=== PATIENT | female | born 1945 | race Caucasian/White ===

== ENCOUNTER 2016-10-25 21:04 | Emergency (ER) | payer MEDICARE, MEDICAID ==
[~2016-10-25] VITALS: Ht 167.6 cm; Wt 89.4 kg
[~2016-10-25 21:04] MED LIST: ASPI-587 PO; CALCIUM PO; CITA10SO PO; CITA10TA PO; Docusate Sodium PO; EST30C PV; FISH400C2 PO; FLAX100032 PO; FLUT16SP22; GLYB5TAB6 PO; HYDR-3720 PO; HYDR1TAB8 OP; Ibuprofen PO; LISI1TAB6 PO; LORA-877 PO; LOVA40TA2 PO; MAGN400C PO; MTF500T PO; MULT-974 PO; Magnesium PO; OMG1KC PO; UBID50TA3 PO; VITA1CAP21 PO; [UNRECOGNIZED DRUG - OTHER] NSEACH
[2016-10-25] MEDS ORDERED: ATOR20TA66 PO (22:22)
[2016-10-25] MEDS ORDERED: LORA10TA7 PO (22:22)
[2016-10-25] MEDS ORDERED: GLIP5TAB13 PO (22:22)
[2016-10-25] MEDS ORDERED: METF1000 PO (22:22)
[2016-10-25] MEDS ORDERED: CITA20TA7 PO (22:22)
[2016-10-25] MEDS ORDERED: MECL-106 PO (22:58)
--- NOTE | 2016-10-25 22:58 | ED Neurological Problem ---
General Chief Complaint: Dizziness/Syncope Stated Complaint: DIZZINESS/UNABLE TO EAT/LEG CRAMPS Nursing Triage Note: Pt c/o dizziness starting at 1500 yesterday. Pt reports she has a hard time standing due to dizziness. Nursing Sepsis Screen: No Definite Risk Source: patient Exam Limitations: no limitations History of Present Illness Time seen by provider: 21:15 Initial Comments This 71-year-old woman presents to the emergency room with complaints of dizziness described as a spinning or vertigo sensation since yesterday afternoon. She denies any other neurologic symptoms. She denies nausea and vomiting. She has loss of appetite. Movement and getting up seems to make the dizziness worse. Patient also reports starting a new antidepressant medication about 5 days ago. Patient also complains of lower extremity cramping. Allergies and Home Medications Allergies Coded Allergies: Penicillins (Verified Allergy, Unknown, 06/02/14) Sulfa (Sulfonamide Antibiotics) (Verified Allergy, Unknown, 06/02/14) latex (Unverified Allergy, Unknown, ITCHING, 06/02/14) Home Medications Aspirin 81 Mg Tablet.dr, 81 MG PO DAILY, (Reported) Atorvastatin Calcium 20 Mg Tablet, 20 MG PO DAILY, (Reported) Citalopram Hydrobromide 20 Mg Tablet, 20 MG PO DAILY, (Reported) Glipizide 5 Mg Tablet, 5 MG PO BID, (Reported) Hctz/Lisinopril 1 Each Tablet, 1 EACH PO DAILY, (Reported) Loratadine 10 Mg Tablet, 10 MG PO DAILY, (Reported) Meclizine HCl 25 Mg Tablet, 25 MG PO TID PRN for DIZZINESS, #20 Prescribed by: TRICIA DANIELS on 10/25/16 1396 Metformin HCl 1,000 Mg Tablet, 1,000 MG PO BID WITH MEALS, (Reported) Constitutional: no symptoms reported Eyes: No Symptoms Reported Ears, Nose, Mouth, Throat: no symptoms reported Respiratory: no symptoms reported Cardiovascular: no symptoms reported Gastrointestinal: see HPI Genitourinary: no symptoms reported : No Musculoskeletal: no symptoms reported Skin: no symptoms reported Psychiatric/Neurological: See HPI Endocrine: No Symptoms Reported Past Qxkiarv-Zclxyb-Xqsyxq Hx Patient Social History Alcohol Use: Denies Use Recreational Drug Use: No Smoking Status: Never a Smoker Recent Foreign Travel: No Contact w/Someone Who Travel: No Recent Infectious Disease Expo: No Recent Hopitalizations: No Immunizations Up To Date Tetanus Booster (TDap): More than 5yrs Date of Pneumonia Vaccine: Aug 22, 2009 Date of Influenza Vaccine: May 22, 2013 Seasonal Allergies Seasonal Allergies: Yes Surgeries HX Surgeries: Yes (SINUS sx x2, CATARACTS) Surgeries: Bladder Surgery, Hysterectomy Respiratory Hx Respiratory Disorders: No Cardiovascular Hx Cardiac Disorders: Yes ("hole in heart") Cardiac Disorders: Hypertension Neurological Hx Neurological Disorders: No Reproductive System Hx Reproductive Disorders: Yes 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 Genitourinary Hx Genitourinary Disorders: No Gastrointestinal Hx Gastrointestinal Disorders: No Musculoskeletal Hx Musculoskeletal Disorders: Yes (arthritis, right patella fx,) Musculoskeletal Disorders: Arthritis, Fractures Endocrine Hx Endocrine Disorders: Yes Endocrine Disorders: Diabetes, Non-Insulin dep HEENT HX ENT Disorders: No Cancer Hx Cancer: No Psychosocial Hx Psychiatric Problems: Yes Behavioral Health Disorders: Depression Integumentary HX Skin/Integumentary Disorder: No Blood Transfusions Hx Blood Disorders: No Family Medical History Family Medial History: Alzheimer's disease 19 MOTHER Arthritis 19 FATHER 19 MOTHER G8 BROTHER G8 SISTER Cardiovascular disease 19 FATHER Completed stroke 19 FATHER Diabetes mellitus 19 FATHER G8 BROTHER G8 SISTER Myocardial infarction 19 FATHER Prostate cancer 19 FATHER No Family History of: AIDS Abdominal aortic aneurysm Alcoholism Colon cancer Dementia Drug abuse Kidney disease Psychosocial problem Respiratory disorder Seizure disorder Severe allergy Thyroid disease Tuberculosis Physical Exam Vital Signs Vital Sign - Last 12Hours 10/25/16 22:14 Temp 97.3 Pulse 82 Resp 18 B/P (MAP) 144/84 Pulse Ox 97 O2 Delivery Room Air Capillary Refill : Less Than 3 Seconds General Appearance: WD/WN, mild distress HEENT: PERRL/EOMI, normal ENT inspection, pharynx normal Neck: supple, normal inspection, No carotid bruit Respiratory: lungs clear, normal breath sounds, no respiratory distress, no accessory muscle use Cardiovascular: regular rate, rhythm, no edema, no murmur Gastrointestinal: normal bowel sounds, non tender, soft Extremities: normal inspection, no pedal edema Neurologic/Psychiatric: a r collections rep II-XII nml as tested, no motor/sensory deficits, alert, normal mood/affect, oriented x 3, other (Positive Randolph-Hallpike on the left) Crainal Nerves: normal hearing, normal speech, PERRL Coordination/Gait: normal finger to nose, normal gait Motor/Sensory: no motor deficit, no sensory deficit Skin: normal color, warm/dry Progress/Results/Core Measures Results/Orders My Orders Vital Signs/I&O Vital Sign - Last 12Hours 10/25/16 10/25/16 22:14 23:05 Temp 97.3 97.3 Pulse 82 82 Resp 18 18 B/P (MAP) 144/84 Pulse Ox 97 97 O2 Delivery Room Air Blood Pressure Mean: 104 Progress Note : Progress Note Patient has a dizziness without any other neurologic complaints or exam findings. Judith-Hallpike was positive to the left. Francisco maneuver was performed which completely relieved her symptoms. Patient was offered lab work to evaluate her lower extremity cramping. She declined stating she would have this done by her primary care provider at the appointment tomorrow. Departure Impression Impression: Primary Impression: Benign paroxysmal positional vertigo of left ear Additional Impression: Leg cramping Qualified Codes: R25.2 - Cramp and spasm Disposition: 01 HOME, SELF-CARE Condition: Improved Departure-Patient Inst. Decision time for Depature: 22:50 Referrals: [facility] (PCP) Primary Care Physician JC BAILEY (Family) Primary Care Physician Patient Instructions: Vertigo (a Type of Dizziness) (DC) Add. Discharge Instructions: Rink plenty of clear liquids. Eat something with potassium in it such as a banana or orange juice tonight. Discuss your leg cramps with your primary care provider tomorrow. If dizziness returns, you may use meclizine to help manage symptoms. Try the Francisco maneuver again if needed. Return to the ER if symptoms worsen. All discharge instructions reviewed with patient and/or family. Voiced understanding. Scripts Meclizine HCl (Meclizine HCl) 25 Mg Tablet 25 MG PO TID Y for DIZZINESS, #20 TAB Prov: TRICIA ECKERT MD 10/25/16 Copy Copies To 1: KHUSHBU ZHU JOSHUA T MD Oct 25, 2016 22:58
[2016-10-25 23:05] VITALS: BP 131/78
--- OUTSIDE RECORDS SUMMARY | 2016-11-26 00:30 | XMS REPORT ---
Author Author WHITNEY BENAVIDES Organization [employer] Address Unknown Phone Unavailable Care Team Providers Care Commercial Development Manager Name Role Phone WHITNEY BENAVIDES CP Unavailable Allergies No Known Allergies Problems Problem Type Condition Code Onset Dates Condition Status Problem Type 2 diabetes mellitus with diabetic polyneuropathy E11.42 Active Problem Essential (primary) hypertension I10 Active Problem Depression F32.9 Active Problem Insomnia G47.00 Active Problem Postnasal drip R09.82 Active Problem Generalized anxiety disorder F41.1 Active Problem Hyperlipemia E78.5 Active Problem Diabetes E11.9 Active Problem CAD (coronary artery disease) I25.10 Active Problem Hypertension I10 Active Problem 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
--- OUTSIDE RECORDS SUMMARY | 2016-11-26 00:30 | XMS REPORT ---
Author JC Strauss [facility] eClinicalWorks Address Unknown Phone Unavailable Care Team Providers Care Mandrel Puller Name Role Phone JC BAILEY Unavailable Allergies No Known Allergies Problems Problem Type Condition Code Onset Dates Condition Status Problem Atherosclerotic heart disease of [place] coronary artery without angina pectoris I25.10 Active Problem Hyperlipemia E78.5 Active Problem Primary generalized (osteo)arthritis M15.0 Active Problem Dyslipidemia associated with type 2 diabetes mellitus E11.69 Active Problem Acute cystitis without hematuria N30.00 Active Problem Generalized anxiety disorder F41.1 Active Problem Type 2 diabetes mellitus without complications E11.9 Active Problem Postnasal drip R09.82 Active Problem Hypertension I10 Active Problem Insomnia G47.00 Active Problem DM neuro manif type II E11.49 Active Medications Medication Code System Code Instructions Start Date End Date Status Dosage Ciprofloxacin HCl NDC [address]-90 500 MG Orally Twice a day Jun 07, 2016 Jun 14, 2016 1 tablet Glucometer NDC 0 1 glucometer Jun 08, 2016 [employer] True Metrix Flexeril NDC 0 10 mg Orally Once a day at night Jun 07, 2016 Jul 07, 2016 1 tablet Results No Known Results Summary Purpose eClinicalWorks Submission
--- OUTSIDE RECORDS SUMMARY | 2016-11-26 00:30 | XMS REPORT ---
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
--- OUTSIDE RECORDS SUMMARY | 2016-11-26 00:30 | XMS REPORT ---
Author JC Strauss [facility] eClinicalWorks Address Unknown Phone Unavailable Care Team Providers Care Aluminum Sheet Cutter Name Role Phone JC BAILEY CP Unavailable Allergies, Adverse Reactions, Alerts Substance Reaction Event Type Sulfamethoxazole-Trimethoprim Info Not Available Drug Allergy Penicillin V Potassium Info Not Available Drug Allergy latex Info Not Available Non Drug Allergy tape Info Not Available Non Drug Allergy Problems Problem Type Condition Code Onset Dates Condition Status Problem Atherosclerotic heart disease of [place] coronary artery without angina pectoris I25.10 Active Problem Hyperlipemia E78.5 Active Problem Primary generalized (osteo)arthritis M15.0 Active Problem Acute cystitis without hematuria N30.00 Active Problem Generalized anxiety disorder F41.1 Active Problem Type 2 diabetes mellitus without complications E11.9 Active Problem Postnasal drip R09.82 Active Problem Hypertension I10 Active Problem Insomnia G47.00 Active Problem DM neuro manif type II E11.49 Active Assessment Generalized anxiety disorder F41.1 Active Assessment Insomnia G47.00 Active Assessment Acute cystitis without hematuria N30.00 Active Assessment Dyslipidemia associated with type 2 diabetes mellitus E11.69 Active Assessment Atherosclerotic heart disease of [place] coronary artery without angina pectoris I25.10 Active Assessment Postnasal drip R09.82 Active Assessment Type 2 diabetes mellitus without complications E11.9 Active Assessment Hyperlipemia E78.5 Active Problem Dyslipidemia associated with type 2 diabetes mellitus E11.69 Active Medications Medication Code System Code Instructions Start Date End Date Status Dosage GlipiZIDE [facility] [address]-60 5 mg Orally twice a day 1 tablet Citalopram Hydrobromide [facility] [address]-31 10 mg Orally Once a day 1 tablet Atorvastatin Calcium [facility] [address]-85 20 mg Orally Once a day TAKE 1 TABLET EVERY DAY (STOP LOVASTATIN) Celexa [facility] [address]-05 20 mg Orally Once a day Jun 01, 2016 1 tablet Nitrofurantoin Monohyd Macro [facility] [address]-73 100 MG Orally every 12 hrs Jun 01, 2016 Jun 11, 2016 1 capsule with food Metformin HCl [facility] [address]-80 1000 MG Orally Twice a day 1 tablet with meals Aspirin [facility] [address]-86 81 MG Orally Once a day 1 tablet Lisinopril-Hydrochlorothiazide [facility] [address]-91 10-12.5 MG Orally Once a day 1 tablet Procedures Procedure Coding System Code Date URINALYSIS, AUTO, W/O SCOPE CPT-4 28530 Jun 01, 2016 Office Visit, Est Pt., Level 4 CPT-4 81808 Jun 01, 2016 GLYCATED HEMOGLOBIN TEST CPT-4 20413 Jun 01, 2016 [facility] NOBLL Jun 01, 2016 Vital Signs Date/Time: Jun 01, 2016 Cardiac Monitoring Heart Rate 77 bpm Weight 191.4 lbs Height 65 in BMI 31.85 Index Blood Pressure Diastolic 70 mmHg Blood Pressure Systolic 122 mmHg Results Name Result Date Reference Range Unit Abnormality Flag CULTURE, URINE ----Urine Culture, Routine Final report [id number] ----Result 1 Raoultella planticola 20160601 A A1C (IN HOUSE) ----A1C IN HOUSE 10.9 20160601 4.3 - 5.6 % ----Previous A1c 7.2 20160601 ----Lot [id number] ----Exp date 20160601 UA LONG DIP (IN HOUSE) ----KARTIK Negative 20160601 ----GLU 3+ 20160601 ----SG 1.015 20160601 ----KET Negative 20160601 ----pH 5.5 20160601 ----Protein Negative 20160601 ----BLO Trace-Intact 20160601 ----ALEXANDRU Trace 20160601 ----Color Brown 20160601 ----Odor Yes [id number] ----Exp date [id number] ----URO 0.2 20160601 ----NIT Positive 20160601 ----Clarity Turbid 20160601 ----Lot # [id number] Summary Purpose eClinicalWorks Submission
--- OUTSIDE RECORDS SUMMARY | 2016-11-26 00:31 | XMS REPORT ---
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
--- OUTSIDE RECORDS SUMMARY | 2016-11-26 00:31 | XMS REPORT ---
Author JC Strauss [facility] eClinicalWorks Address Unknown Phone Unavailable Care Team Providers Care Senior Project Manager Name Role Phone JC BAILEY CP Unavailable Allergies, Adverse Reactions, Alerts Substance Reaction Event Type Sulfamethoxazole-Trimethoprim Info Not Available Drug Allergy Penicillin V Potassium Info Not Available Drug Allergy tape Info Not Available Non Drug Allergy latex Info Not Available Non Drug Allergy Problems Problem Type Condition Code Onset Dates Condition Status Assessment Depression F32.9 Active Assessment Bronchitis J40 Active Assessment Essential (primary) hypertension I10 Active Problem Depression F32.9 Active Problem Type 2 diabetes mellitus with diabetic polyneuropathy E11.42 Active Problem Essential (primary) hypertension I10 Active Problem Dyslipidemia associated with type 2 diabetes mellitus E11.69 Active Problem 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 Problem Primary generalized (osteo)arthritis M15.0 Active Problem Atherosclerotic heart disease of [place] coronary artery without angina pectoris I25.10 Active Assessment Dyslipidemia associated with type 2 diabetes mellitus E11.69 Active Assessment Atherosclerotic heart disease of [place] coronary artery without angina pectoris I25.10 Active Assessment Primary generalized (osteo)arthritis M15.0 Active Assessment Type 2 diabetes mellitus with diabetic polyneuropathy E11.42 Active Medications Medication Code System Code Instructions Start Date End Date Status Dosage Biotin [facility] 02[address]-20510 1 MG Orally not defined Cetirizine HCl [facility] [address]-78 10 MG Orally Once a day 1 tablet as needed Magnesium [facility] [address]-84 250 MG Orally Once a day 1 tablet with a meal [place] 3-6-9 Complex [facility] 38025-[address]642 Orally not defined ProAir HFA [facility] [address]-75 108 (90 Base) MCG/ACT Inhalation every 4 hrs Jun 02, 2015 2 puffs as needed Lancets NDC 0 1 2 times a day Apr 22, 2015 as directed Test strips NDC 0 1 2 times a day Apr 22, 2015 as directed Complete Multi-Purpose NDC 0 not defined Super B Complex NDC 0 not defined Calcium NDC 0 Oral 1 tab Citalopram Hydrobromide [facility] [address]-98 10 MG Orally Once a day 1 tablet Metformin HCl [facility] [address]-72 1000 MG Orally Twice a day January 27, 2015 1 tablet with meals GlipiZIDE [facility] [address]-42 5 MG Orally 2 times a day whole tab in am & 1/2 tab at dinner 1 tablet Glucometer [place] 0 1 Apr 22, 2015 as directed Vitamin D3 [facility] [address]-91 2000 UNIT Orally Once a day not defined Refresh Dry Eye Therapy NDC 0 not defined Restasis [facility] [address]-39 0.05 % Ophthalmic Twice a day 1 into affected eye Premarin [facility] [address]-52 0.625 MG/GM Vaginal not defined Vision Formula/Lutein [facility] 62734-93390 Orally not defined CoQ-10 [facility] 58025-01925 200 MG Orally Once a day 1 capsule with a meal Zinc [facility] [address]-42 50 MG Orally Once a day 1 tablet TruBiotics [facility] 94825-03900 Orally not defined Aspir-Low [facility] [address]-04 81 MG Orally Once a day 1 tablet Diabetic Shoes ND 0 Feb 28, 2015 as directed Levaquin [facility] [address]-57 500 MG Orally Once a day Jun 02, 2015 Jun 12, 2015 1 tablet Aleve [facility] [address]-93 220 MG Orally not defined Lisinopril-Hydrochlorothiazide [facility] [address]-44 10-12.5 MG Orally Once a day 1 tablet Lovastatin [facility] [address]-93 40 MG Orally Once a day 1 tablet with a meal TRUEtest Test NDC 0 Test Strips 3 times a day test blood sugar Tessalon Perles [facility] [address]-11 100 MG Orally Three times a day Jun 02, 2015 1 capsule as needed Procedures Procedure Coding System Code Date Office Visit, Est Pt., Level 3 CPT-4 92386 Jun 06, 2015 Vital Signs Date/Time: Jun 06, 2015 Temperature 97.8 F Weight 205.2 lbs Height 65 in BMI 34.14 Index Blood Pressure Diastolic 62 mmHg Blood Pressure Systolic 124 mmHg Cardiac Monitoring Heart Rate 64 bpm Results No Known Results Summary Purpose eClinicalWorks Submission
--- OUTSIDE RECORDS SUMMARY | 2016-11-26 00:31 | XMS REPORT ---
Author Author JC BAILEY [facility] eClinicalWorks Address Unknown Phone Unavailable Care Team Providers Care Channel Opener Outsoles Name Role Phone JC BAILEY CP Unavailable Allergies No Known Allergies Problems Problem Type Condition Code Onset Dates Condition Status Problem Atherosclerotic heart disease of [place] coronary artery without angina pectoris I25.10 Active [...] neuro manif type II E11.49 Active Medications No Known Medications Results No Known Results Summary Purpose eClinicalWorks Submission
--- OUTSIDE RECORDS SUMMARY | 2016-11-26 00:31 | XMS REPORT ---
Author Author JC BAILEY [facility] e[employer] Address Unknown Phone Unavailable Care Team Providers Care Carpet Yarn Winder Operator Name Role Phone JC BAILEY Unavailable Allergies No Known Allergies Problems Problem Type Condition Code Onset Dates Condition Status Problem Atherosclerotic heart disease of [place] coronary artery without angina pectoris I25.10 Active [...]
--- OUTSIDE RECORDS SUMMARY | 2016-11-26 00:31 | XMS REPORT ---
Author Author JC BAILEY [facility] e[employer]Works Address Unknown Phone Unavailable Care Team Providers Care Head Of Cytogenetics Name Role Phone JC BAILEY Unavailable Allergies [...] 2 diabetes mellitus E11.69 Active Problem Atherosclerotic heart disease of [place] coronary artery without angina pectoris I25.10 Active Problem Primary generalized (osteo)arthritis M15.0 Active Medications No Known Medications Results No Known Results Summary Purpose eClinicalWorks Submission
--- OUTSIDE RECORDS SUMMARY | 2016-11-26 00:31 | XMS REPORT ---
Author Author JC BAILEY [facility] eClinicalWorks Address Unknown Phone Unavailable Care Team Providers Care Strapping Machine Operator Name Role Phone JC BAILEY Unavailable Allergies No Known Allergies Problems Problem Type Condition Code Onset Dates Condition Status Problem Atherosclerotic heart disease of [place] coronary artery without angina pectoris I25.10 Active [...]
--- OUTSIDE RECORDS SUMMARY | 2016-11-26 00:31 | XMS REPORT | Continuity of Care Document ---
Author Author [facility] Organization [facility] Address Unknown Phone Unavailable Allergies Active Description Code Type Severity Reaction Onset Reported/Identified Relationship to Patient Clinical Status Yes latex [id number] Drug Allergy Unknown ITCHING 06/02/2014 Yes Penicillins [id number] Drug Allergy Unknown N/A 06/02/2014 Yes Sulfa (Sulfonamide Antibiotics) [id number] Drug Allergy Unknown N/A 06/02/2014 Medications Problems Date Dx Coded Attending Type Code Diagnosis Diagnosed By 09/14/2013 GEMINI ROSA DO Ot 822.0 FRACTURE PATELLA-CLOSED 09/14/2013 GEMINI ROSA DO Ot 959.7 LOWER LEG INJURY NOS 09/14/2013 GEMINI ROSA DO Ot E000.8 OTHER EXTERNAL CAUSE STATUS 09/14/2013 GEMINI ROSA DO Ot E849.[address] NEC 09/14/2013 GEMINI ROSA DO Ot E888.9 FALL NOS 04/06/2014 LELAND LANTIGUA, JUNITO Rajan Ot 327.51 PERIODIC LIMB MOVEMENT DISORDER 04/06/2014 LELAND LANTIGUA, JUNITO Rajan Ot 786.09 RESPIRATORY ABNORM NEC 06/09/2014 ABNER TRAMMELL MD Ot 618.4 06/09/2014 ABNER TRAMMELL MD Ot 625.6 06/09/2014 ABNER TRAMMELL MD Ot 218.0 SUBMUCOUS LEIOMYOMA 06/09/2014 ABNER TRAMMELL MD Ot 616.0 CERVICITIS 06/09/2014 ABNER TRAMMELL MD Ot 618.4 UTERVAGINAL PROLAPSE NOS 06/09/2014 ABNER TRAMMELL MD Ot 620.8 NONINFL DIS OVA/ADNX NEC 06/09/2014 ABNER TRAMMELL MD Ot 625.6 FEM STRESS INCONTINENCE 06/16/2014 Ot 285.9 06/16/2014 Ot 618.4 06/16/2014 Ot 625.6 06/16/2014 Ot V72.63 06/16/2014 Ot V74.8 07/05/2014 JP LANTIGUA, ABNER [place] Ot V76.12 07/20/2015 VIOLETTA LANTIGUA, JUSTUS [place] Ot 562.10 07/20/2015 VIOLETTA LANTIGUA, JUSTUS [place] Ot 599.0 07/20/2015 Ot 285.9 07/20/2015 Ot 618.4 07/20/2015 Ot 625.6 07/20/2015 Ot V72.63 07/20/2015 Ot V74.8 07/20/2015 JP LANTIGUA, ABNER [place] Ot V76.12 07/28/2015 DAVID PA, YAN K Ot E11.9 07/28/2015 DAVID PA, YAN K Ot E78.5 07/28/2015 DAVID PA, YAN K Ot I10 07/28/2015 DAVID PA, YAN K Ot I25.10 07/29/2015 STEPHEN LANTIGUA, ROBBY J Ot E11.9 07/29/2015 STEPHEN LANTIGUA, ROBBY [place] Ot E78.5 07/29/2015 STEPHEN LANTIGUA, ROBBY J Ot I10 07/29/2015 STEPHEN LANTIGUA, ROBBY J Ot I25.10 07/31/2015 DAVID PA, YAN K Ot E11.9 07/31/2015 DAVID PA, YAN K Ot E78.5 07/31/2015 DAVID PA, YAN K Ot I10 07/31/2015 DAVID PA, YAN K Ot I25.10 08/19/2015 STEPHEN LANTIGUA, ROBBY J Ot E11.9 08/19/2015 STEPHEN LANTIGUA, ROBBY J Ot E78.5 08/19/2015 STEPHEN LANTIGUA, ROBBY J Ot I10 08/19/2015 STEPHEN LANTIGUA, ROBBY J Ot I25.10 09/12/2015 DAVID PA, YAN K Ot E11.9 09/12/2015 DAVID PA, YAN K Ot E78.5 09/12/2015 DAVID PA, YAN K Ot I10 09/12/2015 DIEHL-YAN PURDY Ot I25.10 10/31/2015 YAN THOMPSON Ot E11.9 10/31/2015 YAN THOMPSON Ot E78.5 10/31/2015 YAN THOMPSON Ot I10 10/31/2015 YAN THOMPSON Ot I25.10 10/25/2016 VIOLETTA LANTIGUA, JUSTUS [place] Ot 562.10 DIVERTICULOSIS COLON (W/O MENT OF HEMORR 10/25/2016 VIOLETTA LANTIGUA, JUSTUS [place] Ot 599.0 URIN TRACT INFECTION NOS 10/25/2016 Ot 285.9 ANEMIA NOS 10/25/2016 Ot 618.4 UTERVAGINAL PROLAPSE NOS 10/25/2016 Ot 625.6 FEM STRESS INCONTINENCE 10/25/2016 Ot V72.63 PRE-PROCEDURAL LABORATORY EXAMINATION 10/25/2016 Ot V74.8 SCREEN-BACTERIAL DIS NEC 10/25/2016 JP LANTIGUA, ABNER [place] Ot V76.12 OTH SCREEN MAMMO-MALIGN NEOPLASM OF [place] 10/25/2016 ROBBY MITCHELL MD Ot E11.9 TYPE 2 DIABETES MELLITUS WITHOUT COMPLIC 10/25/2016 ROBBY MITCHELL MD Ot E78.5 HYPERLIPIDEMIA, UNSPECIFIED 10/25/2016 ROBBY MITCHELL MD Ot I10 ESSENTIAL (PRIMARY) HYPERTENSION 10/25/2016 ROBBY MITCHELL MD Ot I25.10 ATHSCL HEART DISEASE OF [place] CORONARY 10/25/2016 YAN THOMPSON Ot E11.9 TYPE 2 DIABETES MELLITUS WITHOUT COMPLIC 10/25/2016 YAN THOMPSON Ot E78.5 HYPERLIPIDEMIA, UNSPECIFIED 10/25/2016 YAN THOMPSON Ot I10 ESSENTIAL (PRIMARY) HYPERTENSION 10/25/2016 YAN THOMPSON Ot I25.10 ATHSCL HEART DISEASE OF [place] CORONARY 10/25/2016 TRICIA ECKERT MD Ot E11.9 TYPE 2 DIABETES MELLITUS WITHOUT COMPLIC 10/25/2016 TRICIA ECKERT MD Ot H81.12 BENIGN PAROXYSMAL VERTIGO, LEFT EAR 10/25/2016 TRICIA ECKERT MD Ot I10 ESSENTIAL (PRIMARY) HYPERTENSION 10/25/2016 TRICIA ECKRET MD Ot R25.2 CRAMP AND SPASM 10/25/2016 TRICIA ECKERT MD Ot R42 DIZZINESS AND GIDDINESS 10/25/2016 TRICIA ECKERT MD Ot Z79.82 COMPUTER REPAIR TECHNICIAN (CURRENT) USE OF ASPIRIN 10/25/2016 TRICIA ECKERT MD Ot Z79.899 OTHER USP (CURRENT) DRUG THERAPY 10/26/2016 TRICIA ECKERT MD Ot E11.9 TYPE 2 DIABETES MELLITUS WITHOUT COMPLIC 10/26/2016 TRICIA ECKERT MD Ot H81.12 BENIGN PAROXYSMAL [place], LEFT EAR 10/26/2016 TRICIA ECKERT MD Ot I10 ESSENTIAL (PRIMARY) HYPERTENSION 10/26/2016 TRICIA ECKERT MD Ot R25.2 CRAMP AND SPASM 10/26/2016 TRICIA ECKERT MD Ot R42 DIZZINESS AND GIDDINESS 10/26/2016 TRICIA ECKERT MD Ot Z79.82 USP (CURRENT) USE OF ASPIRIN 10/26/2016 TRICIA ECKERT MD Ot Z79.899 OTHER COMPUTER REPAIR TECHNICIAN (CURRENT) DRUG THERAPY Procedures Results Encounters ACCT No. Visit Date/Time Discharge Status Pt. Type Provider Facility Loc./Unit Complaint [id number] 11/20/2013 14:18:27 11/20/2013 23: 59:59 CLS Outpatient Tierra Alarcon [id number] 11/03/2013 11:12:58 11/03/2013 23: 59:59 CLS Outpatient Junito Zelaya [id number] 11/03/2013 11:12:58 11/03/2013 23: 59:59 CLS Outpatient Junito Zelaya [id number] 10/26/2013 16:12:29 10/26/2013 23: 59:59 CLS Outpatient Tierra Alarcon
--- OUTSIDE RECORDS SUMMARY | 2016-11-26 00:31 | XMS REPORT ---
Author JC Strauss Organization [employer] Address Unknown Phone Unavailable Care Team Providers Care Production Officer Name Role Phone JC BAILEY CP Unavailable Allergies No Known Allergies Problems Problem Type Condition Code Onset Dates Condition Status Problem Primary generalized (osteo)arthritis M15.0 Active Problem Hyperlipemia E78.5 Active Problem Diabetes E11.9 Active Problem Dyslipidemia associated with type 2 diabetes mellitus E11.69 Active Problem Atherosclerotic heart disease of [place] coronary artery without angina pectoris I25.10 Active Problem Generalized anxiety disorder F41.1 Active Problem Insomnia G47.00 Active Problem Acute cystitis without hematuria N30.00 Active Problem CAD (coronary artery disease) I25.10 Active Problem Hypertension I10 Active Problem DM neuro manif type II E11.49 Active Problem Postnasal drip R09.82 Active Medications Medication Code System Code Instructions Start Date End Date Status Dosage True Metrix Blood Glucose Test [facility] [place] [address] - In Vitro twice daily Feb 27, 2016 as directed Results No Known Results Summary Purpose [employer] Submission
--- OUTSIDE RECORDS SUMMARY | 2016-11-26 00:32 | XMS REPORT ---
Author Author JC BAILEY [facility] [employer] Address Unknown Phone Unavailable Care Team Providers Care E Marketing Specialist Name Role Phone JC BAILEY Unavailable Allergies No Known Allergies Problems Problem Type Condition Code Onset Dates Condition Status Problem Atherosclerotic heart disease of [place] coronary artery without angina pectoris I25.10 Active [...]
--- OUTSIDE RECORDS SUMMARY | 2016-11-26 00:32 | XMS REPORT ---
Author JC Strauss [facility] [employer] Address Unknown Phone Unavailable Care Team Providers Care Mechanical Design Technician Name Role Phone JC BAILEY Unavailable Allergies, Adverse Reactions, Alerts Substance Reaction Event Type Sulfamethoxazole-Trimethoprim Info Not Available Drug Allergy Penicillin V Potassium Info Not Available Drug Allergy tape Info Not Available Non Drug Allergy latex Info Not Available Non Drug Allergy Problems Problem Type Condition Code Onset Dates Condition Status Problem Primary generalized (osteo)arthritis M15.0 Active Problem Depression F32.9 Active Problem Type 2 diabetes mellitus with diabetic polyneuropathy E11.42 Active Problem Postnasal drip R09.82 Active Problem CAD (coronary artery disease) I25.10 Active Problem Insomnia G47.00 Active Problem Diabetes E11.9 Active Problem Essential (primary) hypertension I10 Active Problem Hypertension I10 Active Problem Hyperlipemia E78.5 Active Assessment Atherosclerotic heart disease of [place] coronary artery without angina pectoris I25.10 Active Assessment Primary generalized (osteo)arthritis M15.0 Active Assessment Insomnia G47.00 Active Assessment Dyslipidemia associated with type 2 diabetes mellitus E11.69 Active Assessment Type 2 diabetes mellitus with diabetic polyneuropathy E11.42 Active Problem 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 Assessment Essential (primary) hypertension I10 Active Problem Dyslipidemia associated with type 2 diabetes mellitus E11.69 Active Assessment 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 Problem Atherosclerotic heart disease of [place] coronary artery without angina pectoris I25.10 Active Medications Medication Code System Code Instructions Start Date End Date Status Dosage Aspir-Low [facility] [place] 2[facility] [address]-25 81 MG Orally Once a day 1 tablet Diabetic Shoes [facility] [place] 2] 0 Feb 28, 2015 as directed Aleve [facility] [place] 2] [address]-43 220 MG Orally not defined Actos [facility] [place] 2] [address]-21 30 MG Orally Once a day Jul 18, 2015 1 tablet Ambien [facility] [place] 2[facility] [address]-68 10 MG Orally Once a day Jul 18, 2015 1 tablet at bedtime as needed Metformin HCl [facility] [place] 2] [address]-47 1000 MG Orally Twice a day January 27, 2015 1 tablet with meals Zinc [facility] [place]NOTE 2] [address]-80 50 MG Orally Once a day 1 tablet Vision Formula/Lutein [facility] [place]NOTE 2] [address]86 Orally not defined Biotin [facility] [place] 2] 36[address]3450 1 MG Orally not defined Ambien [facility] [place] 2] [address]-90 10 MG Orally Once a day prn 1 tablet at bedtime as needed Calcium NDC 0 Oral 1 tab Lovastatin [facility] [place] 2] [address]-41 40 MG Orally Once a day 1 tablet with a meal Atorvastatin Calcium [facility] [place] 2] [address]-04 20 MG Orally Once a day Jul 04, 2015 1 tablet TruBiotics [facility] [place] 2] 16[address]181 Orally not defined [place] 3-6-9 Complex [facility] [place]NOTE 2] 97[address] Orally not defined Test strips NDC 0 1 2 times a day Apr 22, 2015 as directed Citalopram Hydrobromide [facility] [place] 2] [address]-59 10 MG Orally Once a day 1 tablet Lisinopril-Hydrochlorothiazide [facility] [place] 2] [address]-32 10-12.5 MG Orally Once a day 1 tablet CoQ-10 [facility] [place] 2] 7[address]77-[address]7380 200 MG Orally Once a day 1 capsule with a meal Vitamin D3 [facility] [place]NOTE 2] [address]-08 2000 UNIT Orally Once a day not defined Fexofenadine HCl [facility] [place]NOTE 2] [address]-60 180 MG Orally Once a day Jun 30, 2015 as directed Super B Complex NDC 0 not defined Glucometer NDC 0 1 Apr 22, 2015 as directed Complete Multi-Purpose NDC 0 not defined ProAir HFA [facility] [place]NOTE 2] [address]-65 108 (90 Base) MCG/ACT Inhalation every 4 hrs Jun 02, 2015 2 puffs as needed Lancets NDC 0 1 2 times a day Apr 22, 2015 as directed Refresh Dry Eye Therapy NDC 0 not defined TRUEtest Test NDC 0 Test Strips 3 times a day test blood sugar Procedures Procedure Coding System Code Date Office Visit, Est Pt., Level 4 CPT-4 03866 Jul 18, 2015 Vital Signs Date/Time: Jul 18, 2015 Temperature 97.0 F Weight 209.9 lbs Height 65 in BMI 34.93 Index Blood Pressure Diastolic 76 mmHg Blood Pressure Systolic 122 mmHg Cardiac Monitoring Heart Rate 68 bpm Results No Known Results Summary Purpose [employer] Submission
--- OUTSIDE RECORDS SUMMARY | 2016-11-26 00:32 | XMS REPORT ---
Author JC Strauss [facility] [employer] Address Unknown Phone Unavailable Care Team Providers Care Roughing Mill Operator Name Role Phone JC BAILEY CP Unavailable Allergies No Known Allergies Problems Problem Type Condition Code Onset Dates Condition Status Problem Primary generalized (osteo)arthritis M15.0 Active Problem Hyperlipemia E78.5 Active Problem Diabetes E11.9 Active Problem Dyslipidemia associated with type 2 diabetes mellitus E11.69 Active Problem Atherosclerotic heart disease of [place] coronary artery without angina pectoris I25.10 Active Problem Generalized anxiety disorder F41.1 Active Problem Insomnia G47.00 Active Problem Acute cystitis without hematuria N30.00 Active Problem CAD (coronary artery disease) I25.10 Active Problem Hypertension I10 Active Problem DM neuro manif type II E11.49 Active Problem Postnasal drip R09.82 Active Medications No Known Medications Results No Known Results Summary Purpose [employer]Clinical[employer] Submission
--- OUTSIDE RECORDS SUMMARY | 2016-11-26 00:32 | XMS REPORT ---
Author Author JC BAILEY [facility] [employer] Address Unknown Phone Unavailable Care Team Providers Care Technical Inspector Name Role Phone JC BAILEY Unavailable Allergies No Known Allergies Problems Problem Type Condition Code Onset Dates Condition Status Problem Atherosclerotic heart disease of [place] coronary artery without angina pectoris I25.10 Active [...] E78.5 Active Problem Diabetes E11.9 Active Medications Medication Code System Code Instructions Start Date End Date Status Dosage Atorvastatin Calcium [facility] [place] [address]-37 20 MG Orally Once a day Jul 04, 2015 1 tablet Results No Known Results Summary Purpose [employer]ClinicalWorks Submission
--- OUTSIDE RECORDS SUMMARY | 2016-11-26 00:32 | XMS REPORT ---
Author JC Strauss [facility] [employer] Address Unknown Phone Unavailable Care Team Providers Care Account Development Representative Name Role Phone JC BAILEY CP Unavailable Allergies, Adverse Reactions, Alerts Substance Reaction Event Type Sulfamethoxazole-Trimethoprim Info Not Available Drug Allergy Penicillin V Potassium Info Not Available Drug Allergy tape Info Not Available Non Drug Allergy latex Info Not Available Non Drug Allergy Problems Problem Type Condition Code Onset Dates Condition Status Assessment Bronchitis J40 Active Assessment Type 2 diabetes mellitus with diabetic polyneuropathy E11.42 Active Problem Depression F32.9 Active Problem Type 2 diabetes mellitus with diabetic polyneuropathy E11.42 Active Problem Essential (primary) hypertension I10 Active Problem Dyslipidemia associated with type 2 diabetes mellitus E11.69 Active Problem 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 Problem Primary generalized (osteo)arthritis M15.0 Active Problem Atherosclerotic heart disease of [place] coronary artery without angina pectoris I25.10 Active Medications Medication Code System Code Instructions Start Date End Date Status Dosage Premarin [facility] [place] [address]-61 0.625 MG/GM Vaginal not defined Aspir-Low [facility] [place] [address]-39 81 MG Orally Once a day 1 tablet CoQ-10 [facility] [place] [address] 200 MG Orally Once a day 1 capsule with a meal Aleve [facility] [place] [address]-27 220 MG Orally not defined TRUEtest Test NDC 0 Test Strips 3 times a day test blood sugar Calcium NDC 0 Oral 1 tab Levaquin [facility] [place] [address]-01 500 MG Orally Once a day Jun 02, 2015 Jun 12, 2015 1 tablet Vitamin D3 [facility] [place] [address]-52 2000 UNIT Orally Once a day not defined Lancets NDC 0 1 2 times a day Apr 22, 2015 as directed Complete Multi-Purpose NDC 0 not defined Restasis [facility] [place] [address]-28 0.05 % Ophthalmic Twice a day 1 into affected eye Cetirizine HCl [facility] [place] [address]-71 10 MG Orally Once a day 1 tablet as needed Lovastatin [facility] [place] [address]-86 40 MG Orally Once a day 1 tablet with a meal Tessalon Perles [facility] [place] [address]-25 100 MG Orally Three times a day Jun 02, 2015 1 capsule as needed Lisinopril-Hydrochlorothiazide [facility] [place] [address]-27 10-12.5 MG Orally Once a day 1 tablet Diabetic Shoes [place] 0 Feb 28, 2015 as directed TruBiotics [facility] [place] [address] Orally not defined GlipiZIDE [facility] [address]-87 5 MG Orally 2 times a day whole tab in am & 1/2 tab at dinner 1 tablet ProAir HFA [facility] [place] [address]-02 108 (90 Base) MCG/ACT Inhalation every 4 hrs Jun 02, 2015 2 puffs as needed Test strips [place] 0 1 2 times a day Apr 22, 2015 as directed Vision Formula/Lutein [facility] [address] Orally not defined Metformin HCl [facility] [address]-52 1000 MG Orally Twice a day January 27, 2015 1 tablet with meals Zinc [facility] [address]-49 50 MG Orally Once a day 1 tablet Citalopram Hydrobromide [facility] [address]-27 10 MG Orally Once a day 1 tablet Magnesium [facility] [address]-90 250 MG Orally Once a day 1 tablet with a meal Glucometer [place] 0 1 Apr 22, 2015 as directed Refresh Dry Eye Therapy NDC 0 not defined Super B Complex NDC 0 not defined [place] 3-6-9 Complex [facility] [address] Orally not defined Biotin [facility] [address] 1 MG Orally not defined Procedures Procedure Coding System Code Date CHEST X-RAY CPT-4 89210 Jun 02, 2015 Office Visit, Est Pt., Level 4 CPT-4 14954 Jun 02, 2015 COMPLETE CBC W/AUTO DIFF WBC CPT-4 90121 Jun 02, 2015 THER/PROPH/DIAG INJ, SC/IM CPT-4 28343 Jun 02, 2015 DEXAMETHASONE 4MG/ML (PER 1 MG) CPT-4 J1100 Jun 02, 2015 VENIPUNCT, ROUTINE* CPT-4 80924 Jun 02, 2015 Vital Signs Date/Time: Jun 02, 2015 Temperature 97.6 F Weight 207.9 lbs Height 65 in BMI 34.59 Index Blood Pressure Diastolic 82 mmHg Blood Pressure Systolic 140 mmHg Cardiac Monitoring Heart Rate 60 bpm Results Name Result Date Reference Range Unit Abnormality Flag ROUTINE VENIPUNCTURE CBC Summary Purpose [employer]ClinicalWorks Submission
--- OUTSIDE RECORDS SUMMARY | 2016-11-26 00:32 | XMS REPORT ---
Author Author JC BAILEY [facility] [employer] Address Unknown Phone Unavailable Care Team Providers Care Route Sales Delivery Driver Name Role Phone JC BAILEY Unavailable Allergies No Known Allergies Problems Problem Type Condition Code Onset Dates Condition Status Problem Atherosclerotic heart disease of [place] coronary artery without angina pectoris I25.10 Active [...]
--- OUTSIDE RECORDS SUMMARY | 2016-11-26 00:33 | XMS REPORT ---
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
--- OUTSIDE RECORDS SUMMARY | 2016-11-26 00:33 | XMS REPORT ---
Author JC Strauss [facility] [employer] Address Unknown Phone Unavailable Care Team Providers Care Heavy Line Technician Name Role Phone JC BAILEY Unavailable Allergies, Adverse Reactions, Alerts Substance Reaction Event Type Sulfamethoxazole-Trimethoprim Info Not Available Drug Allergy Penicillin V Potassium Info Not Available Drug Allergy tape Info Not Available Non Drug Allergy latex Info Not Available Non Drug Allergy Problems Problem Type Condition Code Onset Dates Condition Status Problem Atherosclerotic heart disease of [place] coronary artery without angina pectoris I25.10 Active Problem Type 2 diabetes mellitus with diabetic polyneuropathy E11.42 Active Problem Primary generalized (osteo)arthritis M15.0 Active Problem CAD (coronary artery disease) I25.10 Active Problem Hypertension I10 Active Problem Postnasal drip R09.82 Active Problem Essential (primary) hypertension I10 Active Problem Depression F32.9 Active Problem Hyperlipemia E78.5 Active Problem Diabetes E11.9 Active Assessment CAD (coronary artery disease) I25.10 Active Assessment Dyslipidemia associated with type 2 diabetes mellitus E11.69 Active Assessment Depression F32.9 Active Assessment Postnasal drip R09.82 Active Assessment Essential (primary) hypertension I10 Active Assessment Diabetes E11.9 Active Assessment Primary generalized (osteo)arthritis M15.0 Active Problem 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 Assessment Atherosclerotic heart disease of [place] coronary artery without angina pectoris I25.10 Active Problem Dyslipidemia associated with type 2 diabetes mellitus E11.69 Active Medications Medication Code System Code Instructions Start Date End Date Status Dosage Vitamin D3 [facility] [address]-60 2000 UNIT Orally Once a day not defined Diabetic Shoes ND 0 Feb 28, 2015 as directed Test strips NDC 0 1 2 times a day Apr 22, 2015 as directed Lancets NDC 0 1 2 times a day Apr 22, 2015 as directed Lovastatin [facility] [address]-92 40 MG Orally Once a day 1 tablet with a meal Refresh Dry Eye Therapy NDC 0 not defined Restasis [facility] [address]-93 0.05 % Ophthalmic Twice a day 1 into affected eye Aspir-Low [facility] [address]-29 81 MG Orally Once a day 1 tablet Vision Formula/Lutein [facility] [address]24-[address]888 Orally not defined TruBiotics [facility] [address]54[address] Orally not defined Biotin [facility] [address]692-52411 1 MG Orally not defined Complete Multi-Purpose NDC 0 not defined TRUEtest Test NDC 0 Test Strips 3 times a day test blood sugar Calcium ND 0 Oral 1 tab ProAir HFA [facility] [address]-34 108 (90 Base) MCG/ACT Inhalation every 4 hrs Jun 02, 2015 2 puffs as needed Metformin HCl [facility] [address]-08 1000 MG Orally Twice a day January 27, 2015 1 tablet with meals Premarin [facility] [address]-86 0.625 MG/GM Vaginal not defined Fexofenadine HCl [facility] [address]-86 180 MG Orally Once a day Jun 30, 2015 as directed Aleve [facility] [address]-80 220 MG Orally not defined CoQ-10 [facility] [address] 200 MG Orally Once a day 1 capsule with a meal Glucometer NDC 0 1 Apr 22, 2015 as directed GlipiZIDE [facility] [address]-01 5 MG Orally 2 times a day whole tab in am & 1/2 tab at dinner 1 tablet Lisinopril-Hydrochlorothiazide [facility] [address]-08 10-12.5 MG Orally Once a day 1 tablet Zinc [facility] [address]-97 50 MG Orally Once a day 1 tablet Magnesium [facility] [address]-92 250 MG Orally Once a day 1 tablet with a meal Super B Complex NDC 0 not defined Menno 3-6-9 Complex [facility] [address]87-[address]209 Orally not defined Citalopram Hydrobromide [facility] [address]-47 10 MG Orally Once a day 1 tablet Procedures Procedure Coding System Code Date MICROALBUMIN, SEMIQUANT CPT-4 61242 Jun 30, 2015 Office Visit, Est Pt., Level 4 CPT-4 28082 Jun 30, 2015 GLYCATED HEMOGLOBIN TEST CPT-4 50925 Jun 30, 2015 VENIPUNCT, ROUTINE* CPT-4 99597 Jun 30, 2015 COMPREHEN METABOLIC PANEL CPT-4 33706 Jun 30, 2015 COMPLETE CBC W/AUTO DIFF WBC CPT-4 13926 Jun 30, 2015 ASSAY THYROID STIM HORMONE CPT-4 30992 Jun 30, 2015 LIPID PANEL CPT-4 25816 Jun 30, 2015 Vital Signs Date/Time: Jun 30, 2015 Temperature 97.8 F Weight 203.0 lbs Height 65 in BMI 33.78 Index Blood Pressure Diastolic 70 mmHg Blood Pressure Systolic 124 mmHg Cardiac Monitoring Heart Rate 80 bpm Results Name Result Date Reference Range Unit Abnormality Flag ROUTINE VENIPUNCTURE TSH ----TSH 2.400 [id number] 0.450-4.500 uIU/mL A1C (IN HOUSE) ----A1C IN HOUSE 8.0 20150630 4.30 - 5.6 % ----Previous A1c 10.8 [id number] ----Lot # [id number] ----Exp date [id number] MICROALBUMIN, URINE (IN HOUSE) ----Lot # [id number] ----CRE 200 [id number] ----Exp date [id number] ----ALB 10 [id number] ----Control + [id number] ----Control - [id number] ----A:C (IN HOUSE) <30 20150630 ----Clarity Clear 20150630 ----Color Yellow 20150630 ----Lot # [id number] ----Exp date 20150630 ----MICROALBUMIN Normal 20150630 CMP ----BUN/Creatinine Ratio 16 20150630 11-26 ----eGFR If Africn Am 55 [id number] >59 mL/min/1.73 L ----eGFR If NonAfricn Am 47 [id number] >59 mL/min/1.73 L ----Creatinine, Serum 1.16 13464342 0.57-1.00 mg/dL H ----Chloride, Serum 98 19723087 97-108 mmol/L ----Potassium, Serum 4.5 20150630 3.5-5.2 mmol/L ----Sodium, Serum 137 65187741 134-144 mmol/L ----Protein, Total, Serum 7.3 61506916 6.0-8.5 g/dL ----Albumin, Serum 4.5 20150630 3.5-4.8 g/dL ----Globulin, Total 2.8 20150630 1.5-4.5 g/dL ----A/G Ratio 1.6 20150630 1.1-2.5 ----BUN 18 20150630 8-27 mg/dL ----Glucose, Serum 184 20150630 65-99 mg/dL H ----Carbon Dioxide, Total 23 20150630 18-29 mmol/L ----Calcium, Serum 10.3 20150630 8.7-10.3 mg/dL ----AST (SGOT) 18 20150630 0-40 IU/L ----ALT (SGPT) 15 20150630 0-32 IU/L ----Bilirubin, Total 0.5 20150630 0.0-1.2 mg/dL ----Alkaline Phosphatase, S 84 20150630 39-117 IU/L CBC ----RDW 13.6 19334897 12.3-15.4 % ----MCHC 32.5 63867220 31.5-35.7 g/dL ----MCH 29.9 56808269 26.6-33.0 pg ----MCV 92 15502877 79-97 fL ----Hematocrit 41.5 12993866 34.0-46.6 % ----Hemoglobin 13.5 46877636 11.1-15.9 g/dL ----Immature Granulocytes 0 32775599 % ----RBC 4.51 45341794 3.77-5.28 x10E6/uL ----WBC 6.7 81209598 3.4-10.8 x10E3/uL ----Immature Grans (Abs) 0.0 83603944 0.0-0.1 x10E3/uL ----Eos (Absolute) 0.2 43091950 0.0-0.4 x10E3/uL ----Basos 1 29631137 % ----Baso (Absolute) 0.0 50245840 0.0-0.2 x10E3/uL ----Neutrophils (Absolute) 3.2 17789607 1.4-7.0 x10E3/uL ----Lymphs (Absolute) 2.7 24160795 0.7-3.1 x10E3/uL ----Monocytes(Absolute) 0.5 70402806 0.1-0.9 x10E3/uL ----Neutrophils 48 38991530 % ----Lymphs 41 98545190 % ----Monocytes 7 86336365 % ----Eos 3 67519753 % ----Platelets 310 53450464 150-379 x10E3/uL LIPID PANEL ----HDL Cholesterol 38 58435820 >39 mg/dL L ----Triglycerides 408 41006761 0-149 mg/dL H ----Cholesterol, Total 276 18565167 100-199 mg/dL H Summary Purpose eClinicalWorks Submission
== END 2016-10-25 23:05 | disposition home or self-care (01) ==
LOC: EDUNIT# 21:04 → ER 21:07
DX: H81.12 Benign paroxysmal vertigo, left ear (principal); R25.2 Cramp and spasm; I10 Essential (primary) hypertension; E11.9 Type 2 diabetes mellitus without complications; Z79.82 Long term (current) use of aspirin; Z79.899 Other long term (current) drug therapy
CPT/HCPCS: 99283

== ENCOUNTER 2016-12-16 09:16 | Emergency (ER) | payer MEDICARE, MEDICAID ==
[~2016-12-16] VITALS: Ht 167.6 cm; Wt 98.9 kg
[~2016-12-16 09:16] MED LIST changes: +ATOR20TA66 PO; +CITA20TA7 PO; +GLIP5TAB13 PO; +LORA10TA7 PO; +MECL-106 PO; +METF1000 PO
--- NOTE | 2016-12-16 10:00 | ED GU-Female ---
General Stated Complaint: BURNING DURING URINATION Source: patient Exam Limitations: no limitations History of Present Illness Time seen by provider: 09:51 Initial Comments Patient presents with a one-day history of progressively worsening burning urination, frequency and pink urine. She states she is diabetic with her blood sugars usually running in the 90s but now are running in the 100 110 range. She is on metformin and glipizide. She denies fevers, chills, nausea, vomiting, constipation, rash. Patient does have about 1 UTI a year. Last time was May 2016 and she was treated with Cipro. No history of stones. Allergies and Home Medications Allergies Coded Allergies: Penicillins (Verified Allergy, Unknown, 06/02/14) Sulfa (Sulfonamide Antibiotics) (Verified Allergy, Unknown, 06/02/14) latex (Unverified Allergy, Unknown, ITCHING, 06/02/14) Home Medications Aspirin 81 Mg Tablet.dr, 81 MG PO DAILY, (Reported) Atorvastatin Calcium 20 Mg Tablet, 20 MG PO DAILY, (Reported) Ciprofloxacin HCl 500 Mg Tablet, 500 MG PO BID for 5 Days, #10 Ref 0 Prescribed by: HIGINIO TAVAREZ on 12/16/16 1049 Citalopram Hydrobromide 20 Mg Tablet, 20 MG PO DAILY, (Reported) Glipizide 5 Mg Tablet, 5 MG PO BID, (Reported) Hctz/Lisinopril 1 Each Tablet, 1 EACH PO DAILY, (Reported) Loratadine 10 Mg Tablet, 10 MG PO DAILY, (Reported) Meclizine HCl 25 Mg Tablet, 25 MG PO TID PRN for DIZZINESS, #20 Prescribed by: TRICIA DANIELS on 10/25/16 2908 Metformin HCl 1,000 Mg Tablet, 1,000 MG PO BID WITH MEALS, (Reported) Constitutional: No chills, No diaphoresis, No fever Respiratory: No short of breath, No wheezing Cardiovascular: No chest pain, No edema Genitourinary: see HPI, burning, denies discharge, dysuria, frequency, denies flank pain, hematuria : No Musculoskeletal: No back pain, No joint pain Skin: No pruritus, No rash Past Gojmqnq-Rpkrdw-Bmhckk Hx Patient Social History Alcohol Use: Denies Use Recreational Drug Use: No Smoking Status: Never a Smoker Recent Foreign Travel: No Contact w/Someone Who Travel: No Recent Hopitalizations: No Immunizations Up To Date Tetanus Booster (TDap): More than 5yrs Date of Pneumonia Vaccine: Aug 22, 2009 Date of Influenza Vaccine: May 22, 2013 Seasonal Allergies Seasonal Allergies: Yes Surgeries HX Surgeries: Yes (SINUS sx x2, CATARACTS) Surgeries: Bladder Surgery, Hysterectomy Respiratory Hx Respiratory Disorders: No Cardiovascular Hx Cardiac Disorders: Yes ("hole in heart") Cardiac Disorders: Hypertension Neurological Hx Neurological Disorders: No Reproductive System Hx 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 Genitourinary Hx Genitourinary Disorders: No Gastrointestinal Hx Gastrointestinal Disorders: No Musculoskeletal Hx Musculoskeletal Disorders: Yes (arthritis, right patella fx,) Musculoskeletal Disorders: Arthritis, Fractures Endocrine Hx Endocrine Disorders: Yes Endocrine Disorders: Diabetes, Non-Insulin dep HEENT HX ENT Disorders: No Cancer Hx Cancer: No Psychosocial Hx Psychiatric Problems: Yes Behavioral Health Disorders: Depression Integumentary HX Skin/Integumentary Disorder: No Blood Transfusions Hx Blood Disorders: No Family Medical History Family Medial History: Alzheimer's disease 19 MOTHER Arthritis 19 FATHER 19 MOTHER G8 BROTHER G8 SISTER Cardiovascular disease 19 FATHER Completed stroke 19 FATHER Diabetes mellitus 19 FATHER G8 BROTHER G8 SISTER Myocardial infarction 19 FATHER Prostate cancer 19 FATHER No Family History of: AIDS Abdominal aortic aneurysm Alcoholism Colon cancer Dementia Drug abuse Kidney disease Psychosocial problem Respiratory disorder Seizure disorder Severe allergy Thyroid disease Tuberculosis Physical Exam Vital Signs Vital Sign - Last 12Hours 12/16/16 09:45 Temp 97.5 Pulse 70 Resp 16 B/P (MAP) 130/72 Pulse Ox 96 O2 Delivery Room Air Capillary Refill : General Appearance: WD/WN, no apparent distress HEENT: PERRL/EOMI, pharynx normal Cardiovascular: normal peripheral pulses, regular rate, rhythm Respiratory: chest non-tender, lungs clear Back: normal inspection, no CVA tenderness Extremities: no pedal edema, normal capillary refill Skin: normal color, warm/dry Lymphatic: no adenopathy Progress/Results/Core Measures Results/Orders Lab Results Laboratory Tests Test 12/16/16 09:30 Range/Units Urine Color YELLOW Urine Clarity CLEAR Urine pH 5 5-9 Urine Specific [place] 1.010 L 1.016-1.022 Urine Protein 1+ H NEGATIVE Urine Glucose (UA) 4+ H NEGATIVE Urine Ketones NEGATIVE NEGATIVE Urine Nitrite NEGATIVE NEGATIVE Urine Bilirubin NEGATIVE NEGATIVE Urine Urobilinogen NORMAL NORMAL MG/DL Urine Leukocyte Esterase 3+ H NEGATIVE Urine RBC (Auto) 1+ H NEGATIVE Urine RBC NONE /HPF Urine WBC 10-25 H /HPF Urine Squamous Epithelial Cells 5-10 /HPF Urine Crystals NONE /LPF Urine Bacteria TRACE /HPF Urine Casts NONE /LPF Urine Mucus NEGATIVE /LPF Urine Culture Indicated YES My Orders Orders - HIGINIO TAVAREZ Ua Culture If Indicated (12/16/16 10:00) Urine Culture (12/16/16 09:30) Ceftriaxone Injection (Rocephin Injectio (12/16/16 11:00) Lidocaine 1% Injection (Xylocaine 1% Inj (12/16/16 11:00) Medications Given in ED Current Medications Medications Dose Ordered Sig/Jani Route Start Time Stop Time Status Last Admin Dose Admin Ceftriaxone Sodium 1,000 mg ONCE ONCE IM 12/16/16 11:00 12/16/16 11:01 DC 12/16/16 10:59 1,000 MG Lidocaine HCl 2.1 ml ONCE ONCE INJ 12/16/16 11:00 12/16/16 11:01 DC 12/16/16 11:00 2.1 ML Vital Signs/I&O Vital Sign - Last 12Hours 12/16/16 12/16/16 12/16/16 09:45 10:59 11:09 Temp 97.5 97.5 97.5 Pulse 70 68 Resp 16 16 B/P (MAP) 130/72 Pulse Ox 96 96 O2 Delivery Room Air Departure Impression Impression: Primary Impression: Urinary tract infection Qualified Codes: N30.00 - Acute cystitis without hematuria Disposition: HOME, SELF-CARE Condition: Stable Departure-Patient Inst. Decision time for Depature: 10:47 Referrals: [facility] (PCP) Primary Care Physician JC BAILEY (Family) Primary Care Physician Patient Instructions: Urinary Tract Infection, Adult (DC) Add. Discharge Instructions: You have a urinary tract infection. You've been given a single injection of antibiotics should cover you for about 24-48 hours. You should take Your antibiotics at your earliest convenience and take them to completion. Drink plenty of fluids. Take the antibiotics with food. If you have any side effects or have worsening symptoms such as nausea, vomiting, fevers You should return to the ER or go to your primary care physician. Scripts Ciprofloxacin HCl (Ciprofloxacin HCl) 500 Mg Tablet 500 MG PO BID for 5 Days, #10 TAB 0 Refills Prov: HIGINIO TAVAREZ 12/16/16 Copy Copies To 1: KHUSHBU ZHU TITUS J December 16, 2016 10:00
[2016-12-16 10:16] LABS: BILIRUBIN,URINE NEGATIVE (NEGATIVE); KETONES,URINE NEGATIVE (NEGATIVE); LEUKOCYTE ESTERASE ,URINE 3+ (NEGATIVE); NITRITE,URINE NEGATIVE (NEGATIVE); PH,URINE 5 (5-9); PROTEIN,URINE 1+ (NEGATIVE); UROBILINOGEN,URINE NORMAL (NORMAL)
[2016-12-16] MEDS ORDERED: CIPR500T4 PO (10:49)
[2016-12-16] MEDS ORDERED: cefTRIAXone 1 GM (ROCEPHIN) VIAL IM ONE (11:00)
[2016-12-16] MEDS ORDERED: LIDOCAINE 1% INJ 20 ML (XYLOCAINE) VIAL INJ ONE (11:00)
[2016-12-16 11:09] VITALS: BP 128/68
== END 2016-12-16 11:09 | disposition home or self-care (01) ==
LOC: EDUNIT# 09:16 → ER 09:18
DX: N30.90 Cystitis, unspecified without hematuria (principal); E11.9 Type 2 diabetes mellitus without complications; I10 Essential (primary) hypertension; Z79.82 Long term (current) use of aspirin; Z79.84 Long term (current) use of oral hypoglycemic drugs; Z79.899 Other long term (current) drug therapy
CPT/HCPCS: 81000; 87088; 99282

== ENCOUNTER 2016-12-22 12:36 | Emergency (ER) | payer MEDICARE, MEDICAID ==
[~2016-12-22 12:36] MED LIST changes: +CIPR500T4 PO
[2016-12-22 14:13] VITALS: BP 0/0
--- OUTSIDE RECORDS SUMMARY | 2017-01-04 09:53 | XMS REPORT | Continuity of Care Document ---
Author Author [facility] Address Unknown Phone Unavailable Allergies Active Description Code Type Severity Reaction Onset Reported/Identified Relationship to Patient Clinical Status Yes latex [id number] Drug Allergy Unknown ITCHING 06/02/2014 Yes Penicillins [id number] Drug Allergy Unknown N/A 06/02/2014 Yes Sulfa (Sulfonamide Antibiotics) [id number] Drug Allergy Unknown N/A 06/02/2014 Medications Problems [...] MD Ot I25.10 ATHSCL HEART DISEASE OF [place] CORONARY 10/25/2016 YAN THOMPSON Ot E11.9 TYPE 2 DIABETES MELLITUS WITHOUT COMPLIC 10/25/2016 YAN THOMPSON Ot E78.5 HYPERLIPIDEMIA, UNSPECIFIED 10/25/2016 YAN THOMPSON Ot I10 ESSENTIAL (PRIMARY) HYPERTENSION 10/25/2016 YAN THOMPSON Ot I25.10 ATHSCL HEART DISEASE OF [place] CORONARY 10/25/2016 TRICIA ECKERT MD Ot E11.9 TYPE 2 DIABETES MELLITUS WITHOUT COMPLIC 10/25/2016 TRICIA ECKERT MD Ot H81.12 BENIGN PAROXYSMAL VERTIGO, LEFT EAR 10/25/2016 TRICIA ECKERT MD Ot I10 ESSENTIAL (PRIMARY) HYPERTENSION 10/25/2016 TRICIA ECKERT MD Ot R25.2 CRAMP AND SPASM 10/25/2016 TRICIA ECKERT MD, Ot R42 DIZZINESS AND GIDDINESS 10/25/2016 TRICIA ECKERT MD Ot Z79.82 DIETICIAN (CURRENT) USE OF ASPIRIN 10/25/2016 TRICIA ECKERT MD Ot Z79.899 OTHER GROUP HOME (CURRENT) DRUG THERAPY 10/26/2016 TRICIA ECKERT MD Ot E11.9 TYPE 2 DIABETES MELLITUS WITHOUT COMPLIC 10/26/2016 TRICIA ECKERT MD Ot H81.12 BENIGN PAROXYSMAL VERTIGO, LEFT EAR 10/26/2016 TRICIA ECKERT MD, Ot I10 ESSENTIAL (PRIMARY) HYPERTENSION 10/26/2016 TRICIA ECKERT MD, Ot R25.2 CRAMP AND SPASM 10/26/2016 TRICIA ECKERT MD, Ot R42 DIZZINESS AND GIDDINESS 10/26/2016 TRICIA ECKERT MD Ot Z79.82 GROUP HOME (CURRENT) USE OF ASPIRIN 10/26/2016 TRICIA ECKERT MD, Ot Z79.899 OTHER DIETICIAN (CURRENT) DRUG THERAPY 12/16/2016 HIGINIO TAVAREZ MD Ot E11.9 TYPE 2 DIABETES MELLITUS WITHOUT COMPLIC 12/16/2016 HIGINIO TAVAREZ MD Ot I10 ESSENTIAL (PRIMARY) HYPERTENSION 12/16/2016 HIGINIO TAVAREZ MD Ot N30.90 CYSTITIS, UNSPECIFIED WITHOUT HEMATURIA 12/16/2016 HIGINIO TAVAREZ MD Ot R30.0 DYSURIA 12/16/2016 HIGINIO TAVAREZ MD Ot Z79.82 GROUP HOME (CURRENT) USE OF ASPIRIN 12/16/2016 HIGINIO TAVAREZ MD Ot Z79.84 DIETICIAN (CURRENT) USE OF ORAL HYPOGLYC 12/16/2016 HIGINIO TAVAREZ MD Ot Z79.899 OTHER DIETICIAN (CURRENT) DRUG THERAPY Procedures Results Test Result Range Complete urinalysis with reflex to culture - 12/16/16 09:30 Urine color determination YELLOW NRG Urine clarity determination CLEAR NRG Urine pH measurement by test strip 5 5- 9 Specific gravity of urine by test strip 1.010 1.016-1.022 Urine protein assay by test strip, semi-quantitative 1+ NEGATIVE Urine glucose detection by automated test strip 4+ NEGATIVE Erythrocytes detection in urine sediment by light microscopy 1+ NEGATIVE Urine ketones detection by automated test strip NEGATIVE NEGATIVE Urine nitrite detection by test strip NEGATIVE NEGATIVE Urine total bilirubin detection by test strip NEGATIVE NEGATIVE Urine urobilinogen measurement by automated test strip (mass/volume) NORMAL NORMAL Urine leukocyte esterase detection by dipstick 3+ NEGATIVE Automated urine sediment erythrocyte count by microscopy (number/high power field) NONE NRG Automated urine sediment leukocyte count by microscopy (number/high power field ) [HPF] NRG Bacteria detection in urine sediment by light microscopy TRACE NRG Squamous epithelial cells detection in urine sediment by light microscopy 5-10 NRG Crystals detection in urine sediment by light microscopy NONE NRG Casts detection in urine sediment by light microscopy NONE NRG Mucus detection in urine sediment by light microscopy NEGATIVE NRG Complete urinalysis with reflex to culture YES NRG Bacterial urine culture - 12/16/16 09:30 Bacterial urine culture [id number] NRG COLONY COUNT <10,000 NRG FREE TEXT ENTRY 2 MIXED GRAM POSITIVES <10,000/ML NRG Encounters ACCT No. Visit Date/Time Discharge Status Pt. Type Provider Facility Loc./Unit Complaint [id number] 11/20/2013 14:18:27 11/20/2013 23: 59:59 CLS Outpatient Tierra Alarcon [id number] 11/03/2013 11:12:58 11/03/2013 23: 59:59 CLS Outpatient Junito Zelaya [id number] 11/03/2013 11:12:58 11/03/2013 23: 59:59 CLS Outpatient Junito Zelaya [id number] 10/26/2013 16:12:29 10/26/2013 23: 59:59 CLS Outpatient Tierra Alarcon
--- OUTSIDE RECORDS SUMMARY | 2017-01-07 14:33 | XMS REPORT | Continuity of Care Document ---
Author Author [facility] Organization [facility] Address Unknown Phone Unavailable Allergies Active Description Code Type Severity Reaction Onset Reported/Identified Relationship to Patient Clinical Status Yes latex [id number] Drug Allergy Unknown ITCHING 06/02/2014 Yes Penicillins [id number] Drug Allergy Unknown N/A 06/02/2014 Yes Sulfa (Sulfonamide Antibiotics) [id number] Drug Allergy Unknown N/A 06/02/2014 Medications Problems [...] JP LANTIGUA, ABNER [place] Ot V76.12 07/28/2015 ADVID PA, YAN K Ot E11.9 07/28/2015 DAVID [...] I25.10 10/31/2015 YAN THOMPSON Ot E11.9 10/31/2015 AYN THOMPSON Ot E78.5 10/31/2015 YAN HTOMPSON Ot I10 10/31/2015 YAN THOMPSON Ot I25.10 [...] MD Ot I25.10 ATHSCL HEART DISEASE OF [place] CORONARY 10/25/2016 YAN THOMPSON Ot E11.9 TYPE 2 DIABETES MELLITUS WITHOUT COMPLIC 10/25/2016 YAN THOMPSON Ot E78.5 HYPERLIPIDEMIA, UNSPECIFIED 10/25/2016 YAN THOMPSON Ot I10 ESSENTIAL (PRIMARY) HYPERTENSION 10/25/2016 YAN THOMPSON Ot I25.10 ATHSCL HEART DISEASE OF [place] CORONARY 10/25/2016 TRICIA ECKERT MD Ot E11.9 TYPE 2 DIABETES MELLITUS WITHOUT COMPLIC 10/25/2016 TRICIA ECKERT MD Ot H81.12 BENIGN PAROXYSMAL VERTIGO, LEFT EAR 10/25/2016 TRICIA ECKERT MD Ot I10 ESSENTIAL (PRIMARY) HYPERTENSION 10/25/2016 TRICIA ECKERT MD Ot R25.2 CRAMP AND SPASM 10/25/2016 TRICIA ECKERT MD, Ot R42 DIZZINESS AND GIDDINESS 10/25/2016 TRICIA ECKERT MD Ot 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 10/25/2016 TRICIA ECKERT MD Ot Z79.899 OTHER [facility] (CURRENT) DRUG THERAPY 10/26/2016 TRICIA ECKERT MD Ot E11.9 TYPE 2 DIABETES MELLITUS WITHOUT COMPLIC 10/26/2016 TRICIA ECKERT MD Ot H81.12 BENIGN PAROXYSMAL VERTIGO, LEFT EAR 10/26/2016 TRICIA ECKERT MD, Ot I10 ESSENTIAL (PRIMARY) HYPERTENSION 10/26/2016 TRICIA ECKERT MD, Ot R25.2 CRAMP AND SPASM 10/26/2016 TRICIA ECKERT MD, Ot R42 DIZZINESS AND GIDDINESS 10/26/2016 TRICIA ECKERT MD Ot Z79.82 FPC (CURRENT) USE OF ASPIRIN 10/26/2016 TRICIA ECKERT MD, Ot Z79.899 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) DRUG THERAPY 12/16/2016 HIGINIO TAVAREZ MD Ot E11.9 TYPE 2 DIABETES MELLITUS WITHOUT COMPLIC 12/16/2016 HIGINIO TAVAREZ MD Ot I10 ESSENTIAL (PRIMARY) HYPERTENSION 12/16/2016 HIGINIO TAVAREZ MD Ot N30.90 CYSTITIS, UNSPECIFIED WITHOUT HEMATURIA 12/16/2016 HIGINIO TAVAREZ MD Ot R30.0 DYSURIA 12/16/2016 HIGINIO TAVAREZ MD Ot Z79.82 FPC (CURRENT) USE OF ASPIRIN 12/16/2016 HIGINIO TAVAREZ MD Ot Z79.84 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 Visit Date/Time Discharge Status Pt. Type Provider Facility Loc./Unit Complaint [id number] 11/20/2013 14:18:27 11/20/2013 23: 59:59 CLS Outpatient Tierra Alarcon [id number] 11/03/2013 11:12:58 11/03/2013 23: 59:59 CLS Outpatient Junito Zelaya [id number] 11/03/2013 11:12:58 11/03/2013 23: 59:59 CLS Outpatient Junito Zelaya [id number] 10/26/2013 16:12:29 10/26/2013 23: 59:59 CLS Outpatient Tierra Alarcon
== END 2016-12-22 14:13 | disposition left against medical advice (07) ==
LOC: ER 12:36 → EDUNIT# 12:36 → ER 12:37
DX: N39.0 Urinary tract infection, site not specified (principal); Z53.21 Procedure and treatment not carried out due to patient leaving prior to being seen by health care provider